=== PATIENT | female | born 1960 | race Caucasian/White ===

== ENCOUNTER → 2020-12-30 | Outpatient (CLI) | payer SELFPAY | LOC: MAMMO 12-09 15:00 | DX: Z12.31 Encounter for screening mammogram for malignant neoplasm of breast (principal); R92.0 Mammographic microcalcification found on diagnostic imaging of breast; N63.10 Unspecified lump in the right breast, unspecified quadrant; N63.20 Unspecified lump in the left breast, unspecified quadrant ==

== ENCOUNTER → 2024-06-05 | Outpatient (CLI) | payer SELFPAY | LOC: MAMMO 14:51 | DX: Z12.31 Encounter for screening mammogram for malignant neoplasm of breast (principal) ==